=== PATIENT | female | born 1980 ===

== ENCOUNTER → 2019-01-30 10:40 | Outpatient (CLI) | payer OTHER, MEDICAID, SELFPAY ==
--- NOTE | 2019-01-30 10:43 | DI.US.S_ITS ---
PROCEDURE: US PELVIC COMPLETE INDICATIONS: Weight gain, menorrhagia TECHNIQUE: Real-time scanning was performed of the pelvic organs, with image documentation. Additional endovaginal scanning was necessary due to incomplete visualization of the adnexal and endometrial structures by transabdominal scanning. COMPARISON: None. FINDINGS: Transabdominal scanning: Limited scanning through the kidneys demonstrates mild right pelviectasis, which is seen both before and after voiding. The left kidney demonstrates an unremarkable appearance. No pathologic free abdominal or pelvic fluid. Endovaginal scanning: Uterus: Uterus is normal in size at 11.1 x 4.4 x 6.1 cm. The endometrium measures 11 mm in combined thickness. An IUD is seen again seen along the endometrial canal, just to the right of the midline. Ovaries: The right ovary measures 3.8 x 2.3 x 2.5 cm and demonstrates an unremarkable sonographic appearance. The left ovary measures 5.1 x 2 x 2.6 cm and demonstrates a vascular isoechoic focus at its inferior pole measuring up to 2.1 cm. No adnexal masses are detected. IMPRESSION: There is a 2.1 cm vascular isoechoic lesion involving the left ovary, which may be related to a resolving hemorrhagic cyst. At clinical discretion, a followup pelvic ultrasound is suggested in 6 weeks to assure resolution/ improvement. An IUD is seen, which is located along the endometrial canal, just to the right of the midline. Mild right kidney pelviectasis, which persists postvoid. Dictated by: Watson Wu M.D. on 01/30/2019 at 11:50 Approved by: Watson Wu M.D. on 01/30/2019 at 11:53
== END ==
PROVIDERS: PCP Student in an Organized Health Care Education/Training Program; Visit Provider Student in an Organized Health Care Education/Training Program
DX: N92.0 Excessive and frequent menstruation with regular cycle (principal); R10.2 Pelvic and perineal pain; R63.5 Abnormal weight gain; N28.9 Disorder of kidney and ureter, unspecified; Z97.5 Presence of (intrauterine) contraceptive device
CPT/HCPCS: 76856

== ENCOUNTER 2019-05-03 08:37 | Emergency (ER) | payer OTHER, MEDICAID, SELFPAY ==
[2019-05-03 08:57] VITALS: BP 183/113; PULSE 89; RESP 20; TEMP 36.5; O2SAT 98
--- NOTE | 2019-05-03 09:05 | ED.EAR ---
HPI - Ear Problem General Chief complaint: Ear Stated complaint: Thinks Ear infection LT is hurting Time Seen by Provider: 05/03/19 09:05 Source: patient Mode of arrival: ambulatory Limitations: no limitations History of Present Illness HPI Narrative: Patient is a 39-year-old female who presents with left ear pain. She says been off and on for past few months however last night she thought it got much worse. She now has some throat pain as well. No fevers no cough. She has been taking ilqi-qcx-xhfydkw seasonal allergy medicines it has not been helping. MD Complaint: ear pain Location: left ear Duration: intermittent Severity: mild Relieving factors: nothing Exacerbating factors: nothing Discharge from ear: no Related Data Previous Rx's Medication Instructions Recorded ketoconazole 2 % shampoo 1 applictn TOP 2XW 14 Days #120 ml 03/25/19 Allergies Allergy/AdvReac Type Severity Reaction Status Date / Time naproxen [From Aleve] Allergy Severe face Verified 04/25/19 14:00 swelling codeine AdvReac Agitated Verified 05/03/19 09:00 Review of Systems Review of Systems ROS Unobtainable: All systems reviewed & are unremarkable except as noted in HPI and below Constitutional Denies chills, Denies fever(s), Denies lethargy and Denies weakness Eyes Denies change in vision, Denies eye discharge, Denies irritation and Denies loss of vision ENT Ears, Nose, Mouth, and Throat: Reports as per HPI Cardiovascular Denies chest pain, Denies irregular heart rhythm, Denies lightheadedness, Denies palpitations, Denies dyspnea, Denies dyspnea on exertion and Denies orthopnea Respiratory Denies cough, Denies dyspnea, Denies dyspnea on exertion and Denies wheezing Gastrointestinal Gastrointestinal: Denies abdominal pain, Denies change in bowel habits, Denies diarrhea, Denies nausea and Denies vomiting Genitourinary Denies hematuria, Denies flank pain, Denies urinary incontinence and Denies urinary urgency Musculoskeletal Denies back pain, Denies muscle weakness, Denies numbness and Denies tingling Integumentary/Breasts Denies pruritus, Denies erythema, Denies rash and Denies wounds Neurologic Denies loss of vision, Denies numbness, Denies tingling and Denies weakness Endocrine Denies palpitations Allergic/Immunologic Denies wheezing PFSH Medical History Anxiety (Chronic) Back problem (Chronic) Fibromyalgia (Chronic ~2009) Lupus (systemic lupus erythematosus) (Chronic) Post traumatic stress disorder (PTSD) (Chronic) Kidney stones (Resolved ~2010) Surgical History Anesthesia (Resolved) History of lithotripsy (Resolved ~2009) Previous section (Resolved ~11/15/00) Family History Mother Lupus Fibromyalgia Social History Smoking Status: Current every day smoker Family History Mother Lupus Fibromyalgia Social History Smoking Status: Current every day smoker Exam Initial Vital Signs Initial Vital Signs: Vital Signs Temperature 97.7 F 05/03/19 08:57 Pulse Rate 89 05/03/19 08:57 Respiratory Rate 20 05/03/19 08:57 Blood Pressure 183/113 H 05/03/19 08:57 Pulse Oximetry 98 05/03/19 08:57 GENERAL: Well-appearing, well-nourished and in no acute distress. HEENT: Head atraumatic,EOMI, pupils reactive, face symmetric, moist mucous membranes EARS: Tympanic membranes visualized, no erythema or bulging, no hemotympanum PHARYNX: No erythema, no tonsillar exudate, no cervical lymphadenopathy CARDIOVASCULAR: Peripheral pulses intact RESPIRATORY: No respiratory distress speaking in full sentences EXTREMITIES: Normal range of motion, no clubbing or edema. Neurovascularly intact NEUROLOGICAL: Alert and oriented x4.Normal gait and speech. Cranial nerves II through XII grossly intact. SKIN: Warm, dry, no laceration, no petechiae, no rashes or lesions. Course Vital Signs - 8 hr 05/03/19 08:57 Temperature 97.7 F Pulse Rate 89 Respiratory Rate 20 Blood Pressure 183/113 H Pulse Oximetry 98 Discharge Plan Departure Patient Disposition: Home Clinical Impression: Acute ear pain Qualifiers: Laterality: left Qualified Code(s): H92.02 - Otalgia, left ear Discharge Date/Time: 05/03/19 09:18 Interventions: ED Discharge Assessment Last Done: 05/03/19 09:17 Instructions: DI for Ear Pain-Adult Activity Restrictions/Additional Instructions: *You have been diagnosed with left ear pain *What to do: At this time no indication for antibiotics other does not appear to be infection. *Continue to take medications as directed *Follow up with your primary care provider in 2-3 days *Return to ER if you should have fever, worsening pain decreased hearing or any new, worsening or concerning symptoms Prescriptions: No Action ketoconazole 2 % shampoo 1 applictn TOP 2XW 14 Days Qty: 120 RF: 2 Referrals: Lukasz Garrett MD [Primary Care Provider] -
== END 2019-05-03 09:18 | disposition home or self-care (01) ==
LOC: ED 09:19
PROVIDERS: Emergency Provider Emergency Medicine; PCP Student in an Organized Health Care Education/Training Program
DX: H92.02 Otalgia, left ear (principal)
CPT/HCPCS: 99282

== ENCOUNTER → 2019-07-09 06:36 | Outpatient (CLI) | payer OTHER, MEDICAID, SELFPAY ==
--- NOTE | 2019-07-09 06:37 | DI.MRI.S_ITS ---
PROCEDURE: MR CERVICAL SPINE WO CON INDICATIONS: Neck pain, R arm parasthesia TECHNIQUE: Noncontrast sagittal T1 spin echo and T2 fast spin echo, sagittal STIR, foraminal oblique sagittal T2 fast spin echo, and axial gradient echo or T2 fast spin echo through the cervical spine. COMPARISON: None. FINDINGS: Image quality: Excellent. Alignment and Curvature: There is normal bony alignment. There is straightening of normal cervical spine curvature. Bone Marrow: Marrow demonstrates normal overall signal. Spinal Cord: Visualized spinal cord has normal size and signal. No cerebellar tonsillar herniation. Paraspinous Soft Tissues: No paravertebral masses. Prevertebral soft tissues are normal in thickness. C2-C3: Normal appearance. C3-C4: Loss of disc signal. Mild, diffuse disc bulge. Mild narrowing of the central canal. Moderate right and mild left neural foraminal narrowing. No neural compression. C4-C5: Loss of disc signal. Mild, diffuse disc bulge. Mild narrowing of the central canal. Mild bilateral neural foraminal narrowing. No neural compression. C5-C6: Loss of disc signal. Moderate, diffuse disc bulge. Isbfvbdj-pu-qsojcm narrowing of the central canal with slight flattening of the anterior margin of the cervical spinal cord. Mild right and moderate left uncovertebral joint hypertrophy. Moderate right and severe left neural foraminal narrowing with compression of the exiting left C6 nerve root.. C6-C7: Loss of disc signal. Moderate, diffuse disc bulge. Moderate narrowing of the central canal. Mild right and moderate left neural foraminal narrowing. No neural compression. C7-T1: Normal appearance. IMPRESSION: 1. Multilevel degenerative disease. 2. Mild bilateral C5-C6 uncovertebral joint hypertrophy. 3. Moderate to severe C5-C6 central canal narrowing. Moderate C6-C7 central canal narrowing. Mild C3-C4 and C4-C5 central canal narrowing. 4. Moderate right and severe left C5-C6 neural foraminal narrowing. Mild right and moderate left C6-C7 neural foraminal narrowing. Moderate right and mild left C3-C4 neural foraminal narrowing. Mild bilateral C4-C5 neural foraminal narrowing. 5. Compression of the exiting left C6 nerve root secondary to neural foraminal narrowing. Please correlate with clinical data. Dictated by: Lelo Malloy MD, PhD on 07/09/2019 at 14:53 Approved by: Lelo Malloy MD, PhD on 07/09/2019 at 15:06
== END ==
PROVIDERS: PCP Student in an Organized Health Care Education/Training Program; Visit Provider Student in an Organized Health Care Education/Training Program
DX: M50.31 Other cervical disc degeneration, high cervical region (principal); R20.2 Paresthesia of skin; M48.02 Spinal stenosis, cervical region; M25.511 Pain in right shoulder; M79.7 Fibromyalgia
CPT/HCPCS: 72141

== ENCOUNTER 2019-10-27 12:36 | Day surgery (SDC) | payer OTHER, MEDICAID, SELFPAY ==
[2019-10-17 12:58] VITALS: BMI 35.5
[2019-10-27] VITALS (15 sets, daily range): BP systolic 127–163; BP diastolic 76–104; PULSE 72–101; RESP 10–20; TEMP 36.3–37.2; O2SAT 16–99; BMI 35.2
--- NOTE | 2019-10-27 | PATH_ITS ---
[facility] Accession Number: [id number] . 01 Material submitted: . uterus - UTERUS, BILATERAL FALLOPIAN TUBES . 02 Diagnosis: Uterus and Bilateral Fallopian Tubes, Hysterectomy and Bilateral Salpingectomy (Morcellated Specimen Weight 92 grams): Portions of interval phase endometrium; negative for glandular hyperplasia, cytologic atypia or malignancy. Myometrium with a leiomyoma (1.7 cm in greatest dimension); negative for cytologic atypia or malignancy. Uterine serosa with focal involvement by endosalpingiosis. Fallopian tube #1 involved by endosalpingiosis; negative for atypia or malignancy. Fallopian tube #2 with no significant histomorphologic abnormality; negative for atypia or malignancy. [facility] 10/31/2019 1114 Local . 02 Electronically signed: . Ashwini Johnson MD, Pathologist NPI- [id number] . 01 Gross description: . Received in formalin, labeled uterus, jade tubes, is a morcellated uterus (92 grams, 12.2 x 6.8 x 4.5 cm in aggregate) and two fimbriated fallopian tubes (tube #1: length-2.5 cm, diameter-0.4 cm; tube #2: length-3.3 cm, diameter-0.5 cm). The ovaries and cervix are absent. The specimen cannot be oriented and the endometrium and myometrium cannot be grossly measured. The parenchyma is borja and contains a solid firm white whorled homogeneous well-circumscribed nodule (1.7 x 1.2 x 0.8 cm). The serosa is borja-white smooth and shiny. The fallopian tubes have mcnamara-borja smooth shiny serosa and borja unremarkable lumens. Section code: (A1-A4) parenchyma, sales representative publications; (A5) fallopian tube #1, sales representative publications serial sections; (A6) fimbria #1, bivalved, entirely submitted; (A7) fallopian tube #2, sales representative publications serial sections; (A8) fimbria #2, bivalved, entirely submitted. ([id number]) /MRV 10/30/2019 1455 Local . 02 Pathologist provided ICD-10: N92.0, Z84.2 . 02 CPT . 840909 Performed at: 01 [facility] [address] [id number] MD Enrico Alas MD Phone: [phone] Performed at: 02 [facility] [address] [place], [place] [id number] MD Nataly Regalado MD Phone: [phone]
[2019-10-27] MEDS: LACTATED RINGERS 1,000 ML 100 ML IV ×2 (13:15→18:17)
--- NOTE | 2019-10-27 14:04 | PM.PREOP ---
Pre-operative Note Interval Note History & Physical reviewed/Exam performed by Physician: Yes Changes to H&P: No
[2019-10-27] MEDS: APREPITANT 40 MG CAPSULE PO (15:16)
[2019-10-27] MEDS: CEFAZOLIN 2 GM/100 ML FROZ.PIGGY IV (15:25)
--- NOTE | 2019-10-27 15:53 | SUR.OPER ---
Lithotomy on padded OR bed. [place] Pad Positioner under torso. Head on pillow, arms padded and tucked at sides. Legs secured in padded yellow fins stirrups.
[2019-10-27] MEDS: ROPIVACAINE 0.2% PF 2 MG/ML 10ML AMP 10 ML INJ (15:59)
[2019-10-27] MEDS: BUPIVACAINE 0.5% W/ EPI (PF) 30 ML VIAL INJ (15:59)
--- NOTE | 2019-10-27 16:45 | PM.OP.1 ---
Operative Date/Time/Diagnoses Date of procedure: 10/27/19 Time of procedure: 16:45 Pre-op diagnosis: Menorrhagia, dysmenorrhea Post-op diagnosis: same Procedure & Clinicians Procedure: Laparoscopic supracervical hysterectomy with bilateral salpingectomy Same procedure as scheduled: Yes Indications: Menorrhagia and dysmenorrhea Surgeon: Concepcion Campo Injection Molding Process Technician: Maura Lucia Click Yes if Unassisted: No Anesthesia Type: General Operative Notes Findings: Slightly globular, boggy uterus. Normal ovaries bilaterally. Status post tubal ligation. No endometriosis. No internal hernias. No scar tissue. Closure Type: primary Specimen(s): other (Uterus above the level of the bladder and the fallopian tubes) Estimated Blood Loss (mL): 20 Blood products transfused: none Procedure in detail: Patient is brought to the operating room where she underwent general anesthesia and [facility]. She was prepped and draped in the usual sterile fashion. A check list was reviewed with the staff in the room prior to beginning of the case. Patient had pulsatile stockings in place and functional. 2 g of Ancef were in prior to beginning of the case.. A Duval catheter was placed. A bivalved speculum was placed in the vagina. The Mirena IUD was removed without difficulty. A single-tooth tenaculum was placed on the anterior lip of the cervix and the cervix dilated to a #6 Hegar dilator. The uterine manipulator was placed through the cervix into the uterus with the balloon inflated with 3 mL of air. The area of the umbilical incision and the 5 mm right and left lower quadrant incisions were injected with Marcaine. An incision was made with scalpel. The verries needle was placed into the abdomen and confirmed in the appropriate place with withdrawal on a syringe and then free flow of fluid down through the needle. The abdomen was insufflated with CO2. The needle was removed and a 5 mm trocar placed without difficulty. There did not appear to be any damage is placement of the trocar. The right and left lower quadrant incisions were made with the scalpel and the trochars placed without damage to internal structures. The PK forceps were used to cauterize sequential bites were taken along the mesosalpinx followed by the round ligaments on both sides. Sequential bites were taken down the broad ligaments. The uterine arteries were cauterized. An incision was made above the level bladder pushing the bladder away from the cervix. The STONEY loop was placed around the uterus and the uterus was amputated above the level of the bladder. Bleeding was controlled with the PK forceps. The PK forceps were used to cauterize in the endocervical canal. A supracervical incision was made and an 11 mm port placed. A 15 mm Endo Catch bag was placed in the abdomen. The uterus was placed in the bag and brought up through the suprapubic port site. The Edinson O was placed. The uterus was hand morselized. The abdomen was reinsufflated and adequate hemostasis was noted. The trochars were removed and the CO2 allowed escape from the abdomen. The fascia layer of the suprapubic site was repaired with 0 Polysorb suture. Skin was closed with 4-0 Monocryl suture at the suprapubic site and the other 3 sites. The patient went to recovery room in good condition. Counts of instruments and sponges were correct. Complications: none Post-operative Condition: stable Disposition: observation Plan for aftercare: Discharge patient when she is ambulatory and tolerating oral medication
[2019-10-27] MEDS: HYDROMORPHONE 2 MG INJ IV (16:48)
[2019-10-27] MEDS: ONDANSETRON 4 MG/2 ML INJ IV ×2 (16:52→18:16)
[2019-10-27] MEDS: METOCLOPRAMIDE 10 MG/2 ML INJ IV (17:14)
--- NOTE | 2019-10-27 17:26 | SUR.PHASEI ---
Patient to room 204 on inpatient hospital bed with all belongings returned. Patient transferred in stable condition. All belongings returned to patient.
[2019-10-27] MEDS: HYDROCODONE/ACET 5/325 TABLET 2 TAB PO ×2 (18:16→22:19)
[2019-10-27] MEDS: INFLUENZA VACCINE 0.5 ML SYRINGE IM (21:04)
[2019-10-28] MEDS: HYDROCODONE/ACET 5/325 TABLET 2 TAB PO ×2 (01:59→07:23)
[2019-10-28] MEDS: LACTATED RINGERS 1,000 ML 100 ML IV (02:01)
--- NOTE | 2019-10-28 03:41 | PC.NURSE ---
Patient VSS, Lap Dressing's are intact w/ minimal drainage, patient's vaginal discharge scant, pink tinged. Patient does complain of abdominal pain /10 that has relief w/ [place] 5/325mg Q4. Patient has been ambulating to bathroom w/ minimal assistance. Patient has SCD's applied, bed is low and locked and call light is within reach.
[2019-10-28 06:08] VITALS: BP 125/78; PULSE 66; RESP 16; TEMP 36.2; O2SAT 97
[2019-10-28] MEDS: IBUPROFEN 600 MG TABLET PO (07:24)
[2019-10-28 08:00] VITALS: BP 131/73; PULSE 70; RESP 18; TEMP 36.9; O2SAT 96
--- NOTE | 2019-10-28 08:39 | CM.DANOTE ---
DCP: Case received, EMR reviewed and met with patient. Introduced self and role. Was able to meet with patient, , Ignacio, at bedside. Obtained baseline history and activity information from patient. DCP assessment completed with information currently available. Patient is a 39 year old female who admitted yesterday morning to the care of the surgical/OB team. PCP: Dr. Garrett. Payer: confirmed: [employer]. Patient came to the hospital for a surgical procedure. She had laparoscopic suprecervical hysterectomy and bilateral salpingectomy secondary to menorrhagia/dysmenorrhea. Met briefly with patient, alert and oriented. at bedside. Patient is independent at home with no needs. Confirmed with her that her primary MD is Dr. Garrett. P: DCP to continue to follow. She should be able to go home when medically stable. Tammy Garcia RN/Slitting Machine Feeder
[2019-10-28 09:00] VITALS: O2SAT 96
--- NOTE | 2019-10-28 09:00 | PM.DS.1 ---
History of Present Illness History of Present Illness Date Patient Seen: 10/28/19 Time Patient Seen: 09:00 Chief complaint: [id number] Narrative: Patient is doing well post laparoscopic supracervical hysterectomy Discharge Providers Provider Discharge Date: 10/28/19 Primary care physician: Lukasz Garrett MD Discharge provider: Concepcion Campo MD Summary Hospital Course Discharge Diagnosis: Dysmenorrhea and menorrhagia status post laparoscopic supracervical hysterectomy Hospital Course: Patient underwent a laparoscopic supracervical hysterectomy with removal of bilateral fallopian tubes on 10/27/2019. She did well postoperatively and was discharged home Status at Discharge Cognitive/behavioral status at discharge: oriented Functional status at discharge: independent ambulation Overall status at discharge: patient is progressing back to baseline Time Spent with Patient Time spent: Less than 30 minutes Exam Vital Signs (past 8 hours): - 10/28/19 06:08 10/28/19 08:00 Temperature 97.2 F L 98.4 F Pulse Rate 66 70 Respiratory Rate 16 18 Blood Pressure 125/78 131/73 Pulse Oximetry 97 96 Oxygen Delivery Method Room Air Oxygen Flow Rate 0 Narrative Exam Narrative: Abdomen is soft, nontender with minimal distention. Dressings are clean and dry. Extremities without edema and nontender. Discharge Plan Discharge Plan Patient Disposition: Home Discharge Med Rec/Prescriptions Prescriptions: Continued hydrocodone-acetaminophen 5-325 mg tablet 2 tab PO Q4-6H PRN (Reason: pain) Qty: 30 RF: 0 ibuprofen 600 mg tablet 600 mg PO Q6H PRN (Reason: Pain) RF: 0 Follow up/Referrals: Lukasz Garrett MD [Primary Care Provider] - Concepcion Campo MD [Physician] - 1 Week Discharge Orders: Discharge (Order); Ordered 10/28/19 Ordered By: Concepcion Campo Provider Discharge Instructions Diet: Regular Activity: no restrictions except nothing in vagina for 1 week Skin/Wound/Dressing Care Report to your healthcare provider any signs of infection, such as:: chills, fever, increased pain and unusual redness Dressing: remove bandaids tonight . Leave steristrips on for 1 week can get wet just pat dry Visit Report/Discharge Packet Instructions: DI for Hysterectomy, How to Prevent Falls, DI for Postoperative Pain, DI for Prescription Opioid Use Visit Report Forms: Stroke Signs & Symptoms Discharge Data Primary Care Provider: Lukasz Garrett Attending Provider: Concepcion Campo
--- NOTE | 2019-10-28 09:49 | PC.NURSE ---
Day Shift- pt rec'd PRN Scotts and PRN Ibuprofen at 0725, pain 8-9/10 aching to abd. Upon re-assessment pain decreased to 5/10, tolerable. Talked about pain management at home, staggering PRN medications, decreasing need for PRn Scotts, cutting pill in half if required. Avoiding constipation, pt has senna at home. Abd lap sites X4 covered with bandaids, umbilicus dressing small amount of dry bloody drainage. Pt ambulated in halls with steady gait with her . States is ready to go home. Pt voiding qs. Discharge summary packet reviewed with pt around 0930, no voiced concerns at this time. Aware of follow up appointment with Dr. Campo on 11/05 at 12:15. Pt has all belongings. Dr. Campo and pt both stated, pt has PRN Scotts prescription at home already. No new prescriptions. Pt left unit at 0945 via wheelchair in no distress with this RN escort. Pt's present to drive her home to [place].
== END 2019-10-28 09:45 | disposition home or self-care (01) ==
LOC: OR 12:37 → AC 17:50
PROVIDERS: PCP Student in an Organized Health Care Education/Training Program; Visit Provider Specialist
PROC: 0UT94ZL Resection of Uterus, Supracervical, Percutaneous Endoscopic Approach (ICD-10-PCS; CPT 58542; principal; 2019-10-27 13:45)
DX: D25.9 Leiomyoma of uterus, unspecified (principal); N92.0 Excessive and frequent menstruation with regular cycle; N94.6 Dysmenorrhea, unspecified; Z23 Encounter for immunization; M79.7 Fibromyalgia; E66.9 Obesity, unspecified; F17.210 Nicotine dependence, cigarettes, uncomplicated; F41.9 Anxiety disorder, unspecified; L93.0 Discoid lupus erythematosus; N94.89 Other specified conditions associated with female genital organs and menstrual cycle
CPT/HCPCS: 58542; 90471; 90656; J0690; J1100; J1170; J2250; J2405; J2704; J2765; J2795; J3010; J8501; Q2038

== ENCOUNTER → 2019-11-05 14:14 | Outpatient (CLI) | payer OTHER, MEDICAID, SELFPAY ==
[2019-10-27 18:31] VITALS: BMI 35.2
== END ==
PROVIDERS: PCP Student in an Organized Health Care Education/Training Program; Visit Provider Specialist
DX: R30.0 Dysuria (principal)
CPT/HCPCS: 87086

== ENCOUNTER 2019-12-06 00:21 | Emergency (ER) | payer OTHER, MEDICAID, SELFPAY ==
[2019-10-27 18:31] VITALS: BMI 35.2
[2019-12-06 00:31] VITALS: BP 142/96; PULSE 74; RESP 15; TEMP 36.6; O2SAT 97; BMI 36.0
--- NOTE | 2019-12-06 00:38 | DI.RAD.S_ITS ---
PROCEDURE: XR CHEST 1V INDICATIONS: chest pain TECHNIQUE: One view of the chest was acquired. COMPARISON: None. FINDINGS: Surgical changes and devices: None. Lungs and pleura: Lungs are clear. No pleural effusions or pneumothorax. Mediastinum: Mediastinal contours appear normal. Heart size is normal. Bones and chest wall: No suspicious bony lesions. Overlying soft tissues appear unremarkable. IMPRESSION: No acute cardiopulmonary process is evident. Dictated by: Willian Patel M.D. on 12/06/2019 at 6:53 Approved by: Willian Patel M.D. on 12/06/2019 at 6:54
[2019-12-06 01:05] LABS: Add Manual Diff / Slide Review NO; Basophils Absolute Auto 100 /uL (0-100); Basophils Percent Auto 0.6 % (0-2); Eosinophils Absolute Auto 100 /uL (0-450); Eosinophils Percent Auto 1.4 % (2-4); Hemoglobin 14.2 g/dL (12.0-16.0); Lymphocytes Absolute Auto 2100 /uL (1100-4500); Lymphocytes Percent Auto 20.4 % (25-40); Mean Corpuscular HGB Conc 35.5 % (30-36); Mean Corpuscular Hemoglobin 32.4 PG (26-34); Mean Corpuscular Volume 91.3 fL (80-100); Monocytes Absolute Auto 900 /uL (0-900); Monocytes Percent Auto 8.5 % (3-14); Neutrophils Absolute Auto 7200 /uL (1500-7000); Neutrophils Percent Auto 69.1 % (50-75); Platelet Count 274 X10^3/uL (150-400); Red Blood Cell Count 4.38 X10^6/uL (4.0-5.2); Red Cell Distribution Width 12.4 % (11.6-14.8); White Blood Cell Count 10.5 X10^3/uL (4.5-11.0)
[2019-12-06 01:09] LABS: Prothrombin Time 11.8 SECONDS (10.1-12.7)
[2019-12-06 01:12] LABS: PTT Partial Thromboplastin Tim 34 SECONDS (26.4-36.2)
[2019-12-06 01:15] LABS: Alanine Aminotransferase 26 IU/L (<35); Albumin 4.5 g/dL (3.5-5.0); Albumin Globulin Ratio 1.3 (1.0-2.8); Alkaline Phosphatase 86 U/L (38-126); Aspartate Aminotransferase 27 IU/L (14-36); BUN Creatinine Ratio 22.9 (6-22); Bilirubin Total 0.4 mg/dL (0.2-1.3); Blood Urea Nitrogen 16 mg/dL (7-17); Calcium 9.5 mg/dL (8.4-10.2); Carbon Dioxide 20 mmol/L (22-32); Chloride 106 mmol/L (98-107); Creatine Kinase 85 U/L (30-135); Estimated Glomerular Filt Rate > 60.0 mL/min (>60); Globulin 3.5 g/dL (1.7-4.1); Glucose 100 mg/dL (70-100); HEMOLYSIS < 15 (0-50); Lipase 232 U/L (23-300); Potassium 3.7 mmol/L (3.4-5.1); Sodium 139 mmol/L (137-145)
[2019-12-06 01:27] LABS: Troponin I < 0.012 ng/mL (0.01-0.034)
--- NOTE | 2019-12-06 02:13 | ED_ITS ---
HPI - Chest Pain General Chief Complaint: Chest Pain Stated Complaint: pain in right arm/chest heavy with pain Time Seen by Provider: 12/06/19 02:10 Source: patient Mode of arrival: Family Vehicle Limitations: no limitations History of Present Illness HPI narrative: 39-year-old female former smoker presents with her in the chief complaint of 3 days episodic chest pain and right upper extremity pain. She denies any provocation or palliation of her chest pain or associated symptoms such as dizziness, weakness, lightheadedness nor nausea, vomiting or diaphoresis. She states her right arm seems to hurt worse with range of motion and she denies any type of injury. She denies any history of the same period 1 month ago she had hysterectomy. She denies any recent travel, history of clot or cancer. MD complaint: chest pain Onset (ago): day(s) Duration: intermittent Pain location: substernal Severity: mild Quality: sharp Pain radiation: none Relieving factors: nothing Exacerbating factors: nothing Treatments prior to arrival chest pain: none Related Data On Oral Contraceptives: No Home Medications Medication Instructions Recorded Confirmed ibuprofen 600 mg tablet 600 mg PO Q6H PRN 08/06/19 11/17/19 Allergies Allergy/AdvReac Type Severity Reaction Status Date / Time naproxen [From Aleve] Allergy Severe face Verified 11/17/19 10:43 swelling codeine AdvReac Mild Agitated Verified 11/17/19 10:43 Review of Systems Constitutional Constitutional: Denies chills, Denies fatigue, Denies fever(s), Denies frequent falls, Denies lethargy and Denies weakness Eyes Eyes: Denies change in vision, Denies eye discharge, Denies irritation and Denies loss of vision ENT Ears, Nose, Mouth, and Throat: Denies change in voice, Denies dizziness, Denies neck pain, Denies sore throat and Denies throat swelling Cardiovascular Cardiovascular: Denies chest pain, Denies irregular heart rhythm, Denies lightheadedness, Denies palpitations, Denies dyspnea, Denies dyspnea on exertion and Denies orthopnea Respiratory Respiratory: Denies cough, Denies dyspnea, Denies dyspnea on exertion and Denies wheezing Gastrointestinal Gastrointestinal: Denies abdominal pain, Denies change in bowel habits, Denies diarrhea, Denies nausea and Denies vomiting Genitourinary Genitourinary: Denies hematuria, Denies flank pain, Denies urinary incontinence and Denies urinary urgency Musculoskeletal Musculoskeletal: Denies back pain, Denies muscle weakness, Denies neck pain, Denies numbness and Denies tingling Integumentary/Breasts Skin/Breast: Denies pruritus, Denies erythema, Denies rash and Denies wounds Neurologic Neurologic: Denies behavioral changes, Denies confusion, Denies dizziness, Denies frequent falls, Denies loss of vision, Denies numbness, Denies tingling and Denies weakness Psychiatric Psychiatric: Denies anxiety, Denies behavioral changes, Denies confusion, Denies depression, Denies homicidal ideation and Denies suicidal ideation Endocrine Endocrine: Denies fatigue, Denies flushing and Denies palpitations Hematologic/Lymphatic Hematologic/Lymphatic: Denies easy bruising Allergic/Immunologic Allergic/Immunologic: Denies urticaria, Denies throat swelling and Denies wheezing Patient History Medical History (Updated 12/06/19 @ 02:50 by Feng Moraes DO) Anxiety (Chronic) Back problem (Chronic) Cervical stenosis of spinal canal (Acute) Fibromyalgia (Chronic ~2009) Herniated nucleus pulposus with myelopathy, cervical (Acute) Kidney stones (Resolved ~2010) Lupus (systemic lupus erythematosus) (Chronic) Post traumatic stress disorder (PTSD) (Chronic) Surgical History (Updated 11/05/19 @ 14:08 by Concepcion Campo MD) Anesthesia (Resolved) History of lithotripsy (Resolved ~2009) Previous section (Resolved ~11/15/00) S/P laparoscopic supracervical hysterectomy (Acute) Social History household members: spouse and children Smoking Status: Current every day smoker alcohol intake: current Smoking Status: Current every day smoker tobacco type: vaping alcohol intake frequency: a few times a week Alcohol type: wine Substance Use Type: marijuana Exam Narrative Exam Narrative: GENERAL: [39] year old patient appears stated age. Well- nourished, well-developed patient, in mild distress. HEAD: Atraumatic. Normocephalic. EYES: Pupils equal round and reactive. Extraocular motions intact. No scleral icterus. No injection or drainage. ENT: Nose without bleeding, purulent drainage. Throat without erythema, tonsillar hypertrophy or exudate. Airway patent. NECK: Trachea midline. Non tender CARDIOVASCULAR: Regular rate and rhythm without murmurs, gallops, or rubs. RESPIRATORY: Clear to auscultation. Breath sounds equal bilaterally. No wheezes, rales, or rhonchi. GASTROINTESTINAL: Abdomen soft, non-tender, nondistended. EXTREMITIES: No edema or joint tenderness. Patient does have some tenderness to palpation of her right upper extremity in the absence of swelling, redness, warmth or deformity. There is no obvious injury. Given recent IV, ultrasound ordered for the potential of DVT BACK: Nontender without deformity or crepitance. No flank tenderness. NEURO: AOx3. SKIN: No rash or erythema of visible areas Initial Vital Signs Initial Vital Signs: Vital Signs Temperature 97.8 F 12/06/19 00:31 Pulse Rate 74 12/06/19 00:31 Respiratory Rate 15 12/06/19 00:31 Blood Pressure 142/96 H 12/06/19 00:31 Pulse Oximetry 97 12/06/19 00:31 Course Orders Ordered: ED Orders 12/06/19 00:34 EKG-12 Lead Stat 12/06/19 00:38 XR chest 1V Stat 12/06/19 00:51 Complete Blood Count AUTO DIFF Stat Comprehensive Metabolic Panel Stat D Dimer Stat Lipase Stat Partial Thromboplastin Time Stat Prothrombin Time INR Stat Troponin & CK Cardiac Panel Stat 12/06/19 02:26 EKG-12 Lead Routine 12/06/19 02:54 US periph venous up extrem rt Stat Vital Signs Vital signs: Vital Signs - 8 hr 12/06/19 00:31 12/06/19 02:32 Temperature 97.8 F Pulse Rate 74 77 Respiratory Rate 15 20 Blood Pressure 142/96 H Blood Pressure [Left Arm] 157/83 H Pulse Oximetry 97 98 MDM - Chest Pain Lab Data Result diagrams: 12/06/19 00:51 12/06/19 00:51 Labs: Lab Results 12/06/19 12/06/19 12/06/19 Range/Units 00:51 00:51 00:51 WBC 10.5 (4.5-11.0) X10^3/uL RBC 4.38 (4.0-5.2) X10^6/uL Hgb 14.2 (12.0-16.0) g/dL Hct 40.0 (36-46) % MCV 91.3 (80-100) fL MCH 32.4 (26-34) PG MCHC 35.5 (30-36) % RDW 12.4 (11.6-14.8) % Plt Count 274 (150-400) X10^3/uL Neut % (Auto) 69.1 (50-75) % Lymph % (Auto) 20.4 L (25-40) % [place] % (Auto) 8.5 (3-14) % Eos % (Auto) 1.4 L (2-4) % Baso % (Auto) 0.6 (0-2) % Neut # (Auto) 7200 H (3694-5051) /uL Lymph # (Auto) 2100 (1599-4364) /uL [place] # (Auto) 900 (0-900) /uL Eos # (Auto) 100 (0-450) /uL Baso # (Auto) 100 (0-100) /uL PT 11.8 (10.1-12.7) SECONDS INR 1.0 (0.9-1.3) APTT 34 (26.4-36.2) SECONDS D-Dimer (<230) ng/mL Sodium 139 (137-145) mmol/L Potassium 3.7 (3.4-5.1) mmol/L Chloride 106 (98-107) mmol/L Carbon Dioxide 20 L (22-32) mmol/L BUN 16 (7-17) mg/dL Creatinine 0.70 (0.52-1.04) mg/dL Estimated GFR > 60.0 (>60) mL/min BUN/Creatinine Ratio 22.9 H (6-22) Glucose 100 (70-100) mg/dL Calcium 9.5 (8.4-10.2) mg/dL Total Bilirubin 0.4 (0.2-1.3) mg/dL AST 27 (14-36) IU/L ALT 26 (<35) IU/L Alkaline Phosphatase 86 (38-126) U/L Total Creatine Kinase 85 (30-135) U/L CK-MB (CK-2) TNP CK-MB (CK-2) Rel Index TNP Troponin I < 0.012 (0.01-0.034) ng/mL Total Protein 8.0 (6.3-8.2) g/dL Albumin 4.5 (3.5-5.0) g/dL Globulin 3.5 (1.7-4.1) g/dL Albumin/Globulin Ratio 1.3 (1.0-2.8) Lipase 232 (23-300) U/L 12/06/19 Range/Units 00:51 WBC (4.5-11.0) X10^3/uL RBC (4.0-5.2) X10^6/uL Hgb (12.0-16.0) g/dL Hct (36-46) % MCV (80-100) fL MCH (26-34) PG MCHC (30-36) % RDW (11.6-14.8) % Plt Count (150-400) X10^3/uL Neut % (Auto) (50-75) % Lymph % (Auto) (25-40) % [place] % (Auto) (3-14) % Eos % (Auto) (2-4) % Baso % (Auto) (0-2) % Neut # (Auto) (3665-3627) /uL Lymph # (Auto) (2010-9124) /uL [place] # (Auto) (0-900) /uL Eos # (Auto) (0-450) /uL Baso # (Auto) (0-100) /uL PT (10.1-12.7) SECONDS INR (0.9-1.3) APTT (26.4-36.2) SECONDS D-Dimer 257 H (<230) ng/mL Sodium (137-145) mmol/L Potassium (3.4-5.1) mmol/L Chloride (98-107) mmol/L Carbon Dioxide (22-32) mmol/L BUN (7-17) mg/dL Creatinine (0.52-1.04) mg/dL Estimated GFR (>60) mL/min BUN/Creatinine Ratio (6-22) Glucose (70-100) mg/dL Calcium (8.4-10.2) mg/dL Total Bilirubin (0.2-1.3) mg/dL AST (14-36) IU/L ALT (<35) IU/L Alkaline Phosphatase (38-126) U/L Total Creatine Kinase (30-135) U/L CK-MB (CK-2) CK-MB (CK-2) Rel Index Troponin I (0.01-0.034) ng/mL Total Protein (6.3-8.2) g/dL Albumin (3.5-5.0) g/dL Globulin (1.7-4.1) g/dL Albumin/Globulin Ratio (1.0-2.8) Lipase (23-300) U/L Imaging Data US - DVT: Radiologist's Impression: no DVT ECG Data Interpretation: Nonischemic MDM Narrative Medical decision making narrative: Multiple etiologies for patient's symptoms considered including: [Cardiac ischemia, thought less likely given lack of convincing history or physical, nonischemic EKG and negative troponin. Pulmonary embolism considered but lack of persistent symptoms, abnormal vitals, and very low D-dimer] Patient's symptoms improved or duration of stay with above-stated therapies. Findings and discharge diagnosis discussed with patient/family followed by verbalization of understanding Return precautions discussed with patient/family whom verbalize understanding. Discharge Plan Departure Patient Disposition: Home Clinical Impression: Atypical chest pain Instructions: DI for Atypical Chest Pain Activity Restrictions/Additional Instructions: *You have been diagnosed with [atypical chest pain, pulmonary embolism and heart attack considered but thought less likely given labs and EKGs] *What to do: *Take medications as directed *Follow up with your primary care provider in 2-3 days, call for an appointment. Let them know you were seen in the Emergency Department and that we ask that you be seen in follow up *Return to ER if you should have any new, worsening or concerning symptoms Prescriptions: No Action ibuprofen 600 mg tablet 600 mg PO Q6H PRN (Reason: Pain) RF: 0 Referrals: Lukasz Garrett MD [Primary Care Provider] -
[2019-12-06 02:32] VITALS: BP 157/83; PULSE 77; RESP 20; O2SAT 98
[2019-12-06 02:42] LABS: D Dimer 257 ng/mL (<230)
--- NOTE | 2019-12-06 02:54 | DI.US.S_ITS ---
PROCEDURE: US PERIPH VENOUS UP EXTREM RT INDICATIONS: PAIN, SWELLING, ELEVATED D DIMER, RECENT IV TECHNIQUE: Real-time imaging, as well as color and pulse Doppler interrogation, was performed of the right upper extremity deep veins from the inferior neck to the antecubital fossa. COMPARISON: None. FINDINGS: The internal jugular vein, visualized portions of the subclavian vein, axillary, and brachial veins are free of intraluminal thrombus. Where physically possible, the veins are normally compressible. Color and pulse Doppler demonstrate normal intraluminal flow, with expected phasicity and pulsatility. Additional scanning of the cephalic and basilic veins of the superficial system demonstrate normal compressibility, without thrombus. IMPRESSION: No evidence of right upper extremity deep vein thrombosis. Dictated by: Willian Patel M.D. on 12/06/2019 at 7:01 Approved by: Willian Patel M.D. on 12/06/2019 at 7:02
[2019-12-06 04:21] VITALS: BP 157/83; PULSE 66; RESP 16; O2SAT 97
== END 2019-12-06 04:23 | disposition home or self-care (01) ==
PROVIDERS: Emergency Medicine; Emergency Provider Emergency Medicine; PCP Student in an Organized Health Care Education/Training Program
DX: R07.89 Other chest pain (principal)
CPT/HCPCS: 36415; 71045; 80053; 82550; 83690; 84484; 85025; 85379; 85610; 85730; 93005; 93971; 99284; 99285

== ENCOUNTER → 2020-06-01 15:06 | Outpatient (CLI) | payer OTHER, MEDICAID, SELFPAY ==
[2019-10-27 18:31] VITALS: BMI 35.2
[2020-06-01 15:15] LABS: RBC Urine None Seen (0-5/HPF)
[2020-06-01 18:56] LABS: Appearance Urine UA CLEAR; Bilirubin Urine UA NEGATIVE (NEGATIVE); Color Urine UA YELLOW; Glucose Urine UA NEGATIVE (Negative); Ketones Urine UA NEGATIVE (NEGATIVE); Leukocyte Esterase Urine UA NEGATIVE (NEGATIVE); Nitrite Urine UA NEGATIVE (Negative); Occult Blood Urine UA NEGATIVE (Negative); Protein Urine UA NEGATIVE (Negative); Specific Gravity Urine UA 1.015 (1.000-1.035); Urobilinogen Urine UA 0.2 E.U./dL (0.2)
[2020-06-01 19:27] LABS: Bacteria Urine Many (>30); Squamous Epithelial Cell Urine 0-1 /HPF (0-5/HPF); WBC Urine 1-5/HPF (0-5/HPF)
[2020-06-01 19:28] LABS: Culture Indicated Urine Cult Not Indicated
== END ==
PROVIDERS: PCP Student in an Organized Health Care Education/Training Program; Referring Provider Student in an Organized Health Care Education/Training Program; Visit Provider Student in an Organized Health Care Education/Training Program
DX: R10.2 Pelvic and perineal pain (principal); R10.9 Unspecified abdominal pain
CPT/HCPCS: 81001

== ENCOUNTER → 2020-06-08 10:53 | Outpatient (CLI) | payer OTHER, MEDICAID, SELFPAY ==
[2019-10-27 18:31] VITALS: BMI 35.2
--- NOTE | 2020-06-08 10:55 | DI.US.S_ITS ---
PROCEDURE: US ABDOMEN COMPLETE INDICATIONS: PAIN TECHNIQUE: Real-time scanning was performed of the abdominal and retroperitoneal organs, with image documentation. COMPARISON: None. FINDINGS: Liver: Size appears prominent. Normal echogenicity. Gallbladder: Nondilated. No stones or sludge. Normal gallbladder wall thickness. No pericholecystic fluid. Negative sonographic Brunson's sign. Biliary ducts: Intrahepatic bile ducts are non-dilated. Extrahepatic bile duct caliber measures 4 mm. Normal is 6-7 mm or less in diameter, or 10 mm or less post-cholecystectomy. Pancreas: Visualized portions of the pancreas are sonographically normal. Spleen: Spleen is normal in size and homogeneous in echotexture. Kidneys: Kidneys are normal in size and echotexture. Right kidney measures 12.3 cm long; left kidney measures 11.8 cm long. No hydronephrosis or nephrolithiasis. No solid masses. Aorta: Visualized aorta is normal in caliber at less than 3 cm. Iliacs: Proximal common iliac arteries are normal in caliber at less than 2.5 cm. IVC: Intrahepatic inferior vena cava is patent. Miscellaneous: No free abdominal fluid. IMPRESSION: 1. No acute cholecystitis. No gallstones. 2. No hydronephrosis. Dictated by: Greg Zamora M.D. on 06/08/2020 at 14:22 Approved by: Greg Zamora M.D. on 06/08/2020 at 14:24
== END ==
PROVIDERS: PCP Student in an Organized Health Care Education/Training Program; Referring Provider Student in an Organized Health Care Education/Training Program; Visit Provider Student in an Organized Health Care Education/Training Program
DX: R10.9 Unspecified abdominal pain (principal); E66.9 Obesity, unspecified; K21.9 Gastro-esophageal reflux disease without esophagitis; M79.7 Fibromyalgia; Z68.36 Body mass index [BMI] 36.0-36.9, adult
CPT/HCPCS: 76700; 97802

== ENCOUNTER → 2020-06-08 11:16 | Outpatient (CLI) | payer OTHER, MEDICAID, SELFPAY ==
[2019-10-27 18:31] VITALS: BMI 35.2
--- NOTE | 2020-06-08 11:29 | DIET.PN ---
Dietary Progress Note Assessment: 40y F referred to RD for abnormal weight gain, weight management, and GERD at her wits end on what to eat or how to manage health conditions. Pt was weight stable and healthy until age 29 at which point she went from size 4-16 in less than a year, pt reports going through very stressful divorce at the time. Was dx c hypothyroid, put on meds, then 2y later it apparently resolved itself. Pt has not had thyroid f/u since. Pt dx c fibromyalgia 2y ago. Pt was taking ranitidine for GERD until no longer available for use, having difficulty finding med/protocol to manage heartburn. Pt describes as heartburn cascades like stomach is pushing things up and burning pain where cannot think or get through it Pt started Elimination Diet recommended by someone online c fibromyalgia. no dairy, no gluten, rice, potatoes, sweet potatoes, sensitive to all food additives quinoa is okay Currently having one meal per day in middle of her day and one small snack: L: salad c Super Greens, tomatoes, mushrooms, egg/tuna, ethiopian dressing (sometimes GF ranch) sn: very small portion meal or popcorn mostly very cold water and coffee to drink pt does not really sweat, experiencing a lot of swelling all over body and heat intolerance. Pt does belly dancing once per week but no other intentional physical activity. HT: 67 WT: 232# has lost 8# on elimination diet in 2w BMI: 36.4 Nutrition Diagnosis: poor nutritional quality of life r/t limited food options secondary to not knowing what to eat to manage obesity, GERD, fibromyalgia aeb pt eating one meal and one snack per day, pt high anxiety over food choices, uncontrolled GERD, obesity, fibromyalgia. Interventions: 1. Discussed Elimination Diet in context of GERD and Fibromyalgia. 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 Pt instructed to continue following the diet strictly for another two weeks at which point she needs to start reintroducing foods to test their effects on her body. Pt instructed to keep food journal and to introduce one new food every 2-3 days. Point is to learn which foods are acceptable to increase variety to least restrictive diet possible for ultimate health. 2. Discussed anti-inflammatory diet principles with goal of liberalizing diet to ultimately follow this pattern. Pt is using canola oil spray for some cooking, educated pt on Greenup 3 and Greenup 6 foods, to reduce 6 and increase 3 to balance inflammation and pain in body. Pt is tolerating spices, herbs, and chilis which are all anti-inflammatory. Pt stopped eating yogurt and is getting no probiotic. Discussed lacto-fermented vegetables, pt likes and tolerates sauerkraut and is very interested in making her own now. Provided pt with instructional handouts and meal plan. 3. Discussed role of physical activity in pain and weight management. Pt's very interested in them going [place] h[place] in [place]. Pt receptive to added encouragement. [facility] as she has hx of hypothyroid but is not being monitored. Pt will call for f/u appt c RD as needed.
== END ==
PROVIDERS: PCP Student in an Organized Health Care Education/Training Program; Referring Provider Student in an Organized Health Care Education/Training Program; Visit Provider Student in an Organized Health Care Education/Training Program
DX: K21.9 Gastro-esophageal reflux disease without esophagitis (principal); M79.7 Fibromyalgia; Z68.36 Body mass index [BMI] 36.0-36.9, adult; E66.9 Obesity, unspecified
CPT/HCPCS: 97802

== ENCOUNTER → 2020-08-26 14:40 | Outpatient (CLI) | payer OTHER, MEDICAID, SELFPAY ==
[2019-10-27 18:31] VITALS: BMI 35.2
[2020-08-26 16:13] LABS: TSH w/ Reflex to FT4 3.29 uIU/mL (0.47-4.68)
== END ==
PROVIDERS: PCP Student in an Organized Health Care Education/Training Program; Referring Provider Student in an Organized Health Care Education/Training Program; Visit Provider Student in an Organized Health Care Education/Training Program
DX: E66.9 Obesity, unspecified (principal)
CPT/HCPCS: 36415; 84443

== ENCOUNTER → 2021-02-04 10:07 | Outpatient (CLI) | payer OTHER, MEDICAID, SELFPAY ==
[2019-10-27 18:31] VITALS: BMI 35.2
[2021-02-04] MEDS: COVID-19 VACC, Ad26(JANSSEN)/PF 0.5 ML IM (10:23)
== END ==
PROVIDERS: PCP Student in an Organized Health Care Education/Training Program; Visit Provider Internal Medicine
DX: Z23 Encounter for immunization (principal)
CPT/HCPCS: 0031A; 91303

== ENCOUNTER → 2021-02-09 08:03 | Outpatient (CLI) | payer OTHER, MEDICAID, SELFPAY ==
[2019-10-27 18:31] VITALS: BMI 35.2
--- NOTE | 2021-02-09 09:57 | DI.CT.S_ITS ---
PROCEDURE: CT ABDOMEN PELVIS W CON INDICATIONS: RLQ abdominal pain for 5mo TECHNIQUE: After the administration of oral and intravenous contrast, 5 mm thick sections acquired from the diaphragms to the symphysis. 5 mm thick coronal and sagittal reformats were performed. For radiation dose reduction, the following was used: automated exposure control, adjustment of mA and/or kV according to patient size. COMPARISON: [facility], , PELVIC COMPLETE, 01/30/2019, 10:59. FINDINGS: Image quality: Excellent. ABDOMEN: Lung bases: Lung bases are clear. Heart size is normal. Solid organs: Liver is normal in size and enhancement. Gallbladder is unremarkable. Biliary system is non-dilated. Pancreas enhances normally. Rare tiny pancreatic calcifications are consistent with mild changes of chronic pancreatitis. Spleen is normal in size and enhancement. No adrenal nodules. Kidneys are normal in size and enhancement, without hydronephrosis. Peritoneum and bowel: Stomach, small bowel, and colon loops are normal in caliber and wall thickness. No free fluid or air. Normal appendix. Nodes and vessels: No retroperitoneal or mesenteric adenopathy. Aorta and inferior vena cava are normal in caliber. Miscellaneous: No ventral hernias. PELVIS: Genitourinary: Bladder wall thickness is normal. Miscellaneous: No inguinal hernias or adenopathy. Interval subtotal hysterectomy. Bones: No suspicious bony lesions. No vertebral body compression fractures. IMPRESSION: 1. No evidence of acute abdominal process. Normal appendix. 2. Moderate fecal debris. 3. Mild findings suggesting chronic pancreatitis. Dictated by: Guido Delacruz M.D. on 02/09/2021 at 10:58 Approved by: Guido Delacruz M.D. on 02/09/2021 at 11:02
== END ==
PROVIDERS: PCP Student in an Organized Health Care Education/Training Program; Referring Provider Student in an Organized Health Care Education/Training Program; Visit Provider Student in an Organized Health Care Education/Training Program
DX: R10.31 Right lower quadrant pain (principal); R10.2 Pelvic and perineal pain
CPT/HCPCS: 74177; Q9967

== ENCOUNTER → 2021-08-15 08:46 | Outpatient (CLI) | payer OTHER, MEDICAID, SELFPAY ==
[2019-10-27 18:31] VITALS: BMI 35.2
[2021-08-15 10:28] LABS: COVID19 -Nasal RAPID Negative (Negative)
== END ==
PROVIDERS: PCP Student in an Organized Health Care Education/Training Program; Visit Provider Physician Assistant
DX: Z20.822 Contact with and (suspected) exposure to COVID-19 (principal)
CPT/HCPCS: 87635

== ENCOUNTER 2021-08-16 22:49 | Emergency (ER) | payer OTHER, MEDICAID, SELFPAY ==
[2019-10-27 18:31] VITALS: BMI 35.2
[2021-08-16 22:57] VITALS: BP 126/81; PULSE 87; RESP 17; TEMP 36.8; O2SAT 98; BMI 32.7
--- NOTE | 2021-08-17 00:24 | ED.EAR ---
HPI - Ear Problem General Chief complaint: Ear Stated complaint: LEFT EAR PAIN COUGH Time Seen by Provider: 08/16/21 23:29 Source: patient Mode of arrival: Ambulatory Limitations: no limitations History of Present Illness HPI Narrative: 41-year-old woman with no significant medical history presents with increasing left ear pain developing right ear pain. She 1st noticed symptoms 48 hours ago and was seen at urgent care. She was diagnosed with otitis media and started on Cipro drops however she has found no improvement now notes that she is having pain around the tragus as well as mastoid tenderness. She is also now noting external canal tenderness on the right side. She has had low-grade fevers for the past 48 hours, mild nausea, no vomiting, abdominal pain, diarrhea, dysuria, cough, chest pain, palpitations. She has had headaches and is now noticing some jaw pain with chewing radiating up into the ears. She does not notice specific drainage from the ears and denies any diabetes. She has not been doing any recent swimming. Related Data Home Medications Medication Instructions Recorded Confirmed ibuprofen 600 mg tablet 600 mg PO Q6H PRN 08/06/19 08/03/21 Previous Rx's Medication Instructions Recorded propranolol 40 mg tablet 40 mg PO BID #180 tab 08/26/20 gabapentin 300 mg capsule 300 mg PO BEDTIME #30 cap 08/03/21 ciprofloxacin 0.3 %-dexamethasone 4 drp OTIC (EAR) BID 7 Days #7.5 ml 08/15/21 0.1 % ear drops,suspension (Ciprodex) ciprofloxacin HCl 750 mg tablet 750 mg PO BID #10 tab 08/17/21 oxycodone-acetaminophen 5 mg-300 1 tab PO Q6HR #8 tab 08/17/21 mg tablet Allergies Allergy/AdvReac Type Severity Reaction Status Date / Time naproxen [From Aleve] Allergy Severe face Verified 08/03/21 14:28 swelling codeine AdvReac Mild Agitated Verified 08/03/21 14:28 lisinopril AdvReac Mild cough Verified 08/03/21 14:28 Review of Systems Review of Systems Narrative: Remainder of review Patient History Medical History Anxiety Back problem Cervical stenosis of spinal canal Family history of endometriosis in first degree relative Fibromyalgia (~2009) Herniated nucleus pulposus with myelopathy, cervical Kidney stones (~2010) Lupus (systemic lupus erythematosus) Post traumatic stress disorder (PTSD) Tinea versicolor Surgical History Anesthesia History of lithotripsy (~2009) Previous section (~11/15/00) S/P laparoscopic supracervical hysterectomy Family History Mother Lupus Fibromyalgia Social History household members: spouse and children Smoking Status: Current some day smoker alcohol intake: current Smoking Status: Current some day smoker tobacco type: vaping alcohol intake frequency: a few times a week Alcohol type: wine Substance Use Type: marijuana Exam Narrative Exam Narrative: General: Alert appropriate in no acute distress HEENT: Left ear is tender with any manipulation with tenderness to the left mastoid process as well as tragus. The ear canal is swollen without significant discharge there is enough of a canal remaining that I can see to the tympanic membrane but can not evaluate any further. The helix is slightly erythematous and full tender to the touch. Right year is beginning to develop some tenderness to the internal portion of the helix and down the ear canal without mastoid tenderness. She does have tenderness on the left side when she opens her jaw. No dental abscesses and she does not have molars either upper or lower on the left side. Respiratory: Able to speak in full sentences, no obvious respiratory distress Skin: No obvious rashes, warm and dry Neurologic: Grossly intact no obvious asymmetries or abnormalities Psych: appropriate insight and affect, cooperative Initial Vital Signs Initial Vital Signs: Vital Signs Temperature 98.2 F 08/16/21 22:57 Pulse Rate 87 08/16/21 22:57 Respiratory Rate 17 08/16/21 22:57 Blood Pressure 126/81 08/16/21 22:57 Pulse Oximetry 98 08/16/21 22:57 Course Orders Ordered: Discontinued Medications Ciprofloxacin (Ciprofloxacin 250 Mg Tablet) 750 mg PO NOW ONE Stop: 08/17/21 00:19 Ketorolac Tromethamine (Ketorolac 30 Mg/Ml Vial) 30 mg IM NOW ONE Stop: 08/17/21 00:19 Ondansetron HCl (Ondansetron 4 Mg Odt Prepack) 1 bottle MISC SEEINSTR ONE Stop: 08/17/21 00:19 Oxycodone/Acetaminophen (Oxycodone/Acetaminophen 5/325 Tablet) 1 tab PO NOW ONE Stop: 08/17/21 00:19 Vital Signs Vital signs: Vital Signs - 8 hr 08/16/21 22:57 Temperature 98.2 F Pulse Rate 87 Respiratory Rate 17 Blood Pressure 126/81 Pulse Oximetry 98 Medical Decision Making MDM Narrative Medical decision making narrative: 41-year-old woman with now bilateral otitis externa left greater than right. Left has failed outpatient management with drops so will expand coverage to include oral ciprofloxacin as well. This does not appear to be a dental infection, posterior pharyngeal infection or acute mastoiditis. There is no for room down the canal that the ear can drain in I do not think an ear wick is required at this time. We discussed pain control continuing the ear drops while the oral option is added. She will follow-up with her primary care physician unless things are worsening. She is safe for home discharge Discharge Plan Departure Patient Disposition: Home Clinical Impression: Otitis externa Qualifiers: Otitis externa type: diffuse Chronicity: acute Laterality: bilateral Qualified Code(s): H60.313 - Diffuse otitis externa, bilateral Instructions: DI for Otitis Externa Activity Restrictions/Additional Instructions: Thank you for coming in today At this point, you are on all of the right treatment for your external ear infection and it is not effective. I want you to continue using the ear drops and start adding the ear drops on the right side as well. To this however, I am going to add oral antibiotics as well that we were treating topically as well as internally. Given the pain that you have behind her ear and into the soft tissue I think that this is very appropriate. Using 400 mg of ibuprofen (2 [id number] pills) and 1 Tylenol every 6 hours can be very helpful in controlling pain. For severe pain, you can use 400 mg of ibuprofen and 1 Percocet. I expect that the pain will become much more tolerable as the infection is better controlled. If you continue to have any nausea you can use the Zofran/ondansetron that we gave you in the emergency department If you find that things are getting worse, please return Prescriptions: New ciprofloxacin HCl 750 mg tablet 750 mg PO BID Qty: 10 RF: 0 oxycodone-acetaminophen 5-300 mg tablet 1 tab PO Q6HR Qty: 8 RF: 0 No Action ciprofloxacin-dexamethasone [Ciprodex] 0.3-0.1 % drops,suspension 4 drp otic (ear) BID 7 Days Qty: 7.5 RF: 0 propranolol 40 mg tablet 40 mg PO BID Qty: 180 RF: 3 gabapentin 300 mg capsule 300 mg PO BEDTIME Qty: 30 RF: 0 ibuprofen 600 mg tablet 600 mg PO Q6H PRN (Reason: Pain) RF: 0 Referrals: Lukasz Garrett MD [Primary Care Provider] -
[2021-08-17] MEDS: ONDANSETRON 4 MG ODT PREPACK 1 BOTTLE MISC (00:28)
[2021-08-17] MEDS: CIPROFLOXACIN 250 MG TABLET 750 MG PO (00:28)
[2021-08-17] MEDS: KETOROLAC 30 MG/ML VIAL IM (00:29)
[2021-08-17] MEDS: OXYCODONE/ACETAMINOPHEN 5/325 TABLET 1 TAB PO (00:29)
== END 2021-08-17 00:40 | disposition home or self-care (01) ==
PROVIDERS: Emergency Provider Emergency Medicine; PCP Student in an Organized Health Care Education/Training Program
DX: H60.313 Diffuse otitis externa, bilateral (principal)
CPT/HCPCS: 96372; 99283; J1885

== ENCOUNTER → 2021-11-08 16:46 | Outpatient (CLI) | payer OTHER, MEDICAID, SELFPAY ==
[2019-10-27 18:31] VITALS: BMI 35.2
--- NOTE | 2021-11-08 16:47 | DI.MG.S_ITS ---
BILATERAL DIGITAL SCREENING MAMMOGRAM 3D/2D WITH CAD: 11/08/2021 CLINICAL: Routine screening. Baseline exam. Family history of breast cancer. No prior exams were available for comparison. There are scattered fibroglandular elements in both breasts. Current study was also evaluated with a Computer Aided Detection (CAD) system. No significant masses, calcifications, or other findings are seen in either breast. IMPRESSION: NEGATIVE There is no mammographic evidence of malignancy. A 1 year screening mammogram is recommended. This exam was interpreted at Station ID: [id number]. NOTE: For mammograms, a report in lay terms will be sent to the patient. Approximately 15% of breast malignancies will not be visualized mammographically. In the management of a palpable breast mass, a negative mammogram must not discourage biopsy of a clinically suspicious lesion. Electronically Signed By: Gianfranco anderson/julissa:11/09/2021 09:10:35 letter sent: Normal Exam ACR BI-RADS Category 1: Negative [id number]
== END ==
PROVIDERS: PCP Student in an Organized Health Care Education/Training Program; Referring Provider Student in an Organized Health Care Education/Training Program; Visit Provider Student in an Organized Health Care Education/Training Program
DX: Z12.31 Encounter for screening mammogram for malignant neoplasm of breast (principal); Z80.3 Family history of malignant neoplasm of breast
CPT/HCPCS: 77063; 77067

== ENCOUNTER → 2023-08-13 09:07 | Outpatient (CLI) | payer OTHER, MEDICAID, SELFPAY ==
[2019-10-27 18:31] VITALS: BMI 35.2
[2023-08-13 10:05] LABS: Add Manual Diff / Slide Review NO; Basophils Absolute Auto 100 /uL (0-100); Eosinophils Absolute Auto 200 /uL (0-450); Eosinophils Percent Auto 2.3 % (2-4); Hematocrit 39.6 % (36-46); Hemoglobin 14.1 g/dL (12.0-16.0); Lymphocytes Absolute Auto 1800 /uL (1100-4500); Lymphocytes Percent Auto 18.8 % (25-40); Mean Corpuscular HGB Conc 35.6 % (30-36); Mean Corpuscular Volume 89.8 fL (80-100); Monocytes Absolute Auto 800 /uL (0-900); Monocytes Percent Auto 8.4 % (3-14); Neutrophils Absolute Auto 6600 /uL (1500-7000); Neutrophils Percent Auto 69.5 % (50-75); Platelet Count 299 X10^3/uL (150-400); Red Blood Cell Count 4.41 X10^6/uL (4.0-5.2); Red Cell Distribution Width 13.2 % (11.6-14.8); White Blood Cell Count 9.5 X10^3/uL (4.5-11.0)
[2023-08-13 10:21] LABS: Alanine Aminotransferase 50 IU/L (<35); Albumin 4.3 g/dL (3.5-5.0); Albumin Globulin Ratio 1.3 (1.0-2.8); Alkaline Phosphatase 78 U/L (38-126); Aspartate Aminotransferase 37 IU/L (14-36); BUN Creatinine Ratio 27.8 (6-22); Bilirubin Total 0.3 mg/dL (0.2-1.3); Blood Urea Nitrogen 20 mg/dL (7-17); Calcium 10.6 mg/dL (8.4-10.2); Carbon Dioxide 24 mmol/L (22-32); Chloride 103 mmol/L (98-107); Estimated Glomerular Filt Rate > 60 mL/min (>60); Globulin 3.3 g/dL (1.7-4.1); Glucose 116 mg/dL (70-100); HEMOLYSIS < 15 (0-50); Potassium 3.7 mmol/L (3.4-5.1); Sodium 138 mmol/L (137-145); Total Protein 7.6 g/dL (6.3-8.2)
[2023-08-13 10:38] LABS: Vitamin D 25 Hydroxy (D3) 33.2 ng/mL (30.0-100.0)
[2023-08-13 10:55] LABS: TSH w/ Reflex to FT4 4.42 uIU/mL (0.47-4.68)
[2023-08-15 06:53] LABS: Parathyroid Hormone Int 16 pg/mL (15-65)
== END ==
PROVIDERS: PCP Student in an Organized Health Care Education/Training Program; Referring Provider Student in an Organized Health Care Education/Training Program; Visit Provider Student in an Organized Health Care Education/Training Program
DX: I10 Essential (primary) hypertension (principal); R23.2 Flushing; E66.9 Obesity, unspecified
CPT/HCPCS: 36415; 80053; 82306; 83001; 83970; 84443; 85025

== ENCOUNTER 2023-09-01 17:25 | Emergency (ER) | payer OTHER, MEDICAID, SELFPAY ==
[2023-08-27 16:08] VITALS: BMI 35.2
[2023-09-01 17:31] VITALS: BP 151/89; PULSE 86; RESP 20; TEMP 36.6; O2SAT 98; BMI 37.3
--- NOTE | 2023-09-01 17:38 | DI.RAD.S_ITS ---
PROCEDURE: XR CHEST 1V INDICATIONS: chest pain TECHNIQUE: One view of the chest was acquired. COMPARISON: [facility], , XR CHEST 1V, 12/06/2019, 1:07. FINDINGS: Surgical changes and devices: None. Lungs and pleura: On this semiupright portable chest examination, no large pneumothorax or large pleural effusions are seen. No focal infiltrates are seen. Low lung volumes are noted. This causes a crowded appearance to the lung markings and limits evaluation. Mediastinum: Mediastinal contours appear normal. Heart size is normal. Bones and chest wall: No suspicious bony lesions. Overlying soft tissues appear unremarkable. IMPRESSION: Limited portable chest examination, without a significant cardiopulmonary abnormality identified. Dictated by: Watson Wu M.D. on 09/01/2023 at 17:29 Approved by: Watson Wu M.D. on 09/01/2023 at 17:29
[2023-09-01 18:01] VITALS: BP 133/91; PULSE 77; RESP 13; O2SAT 97
--- NOTE | 2023-09-01 18:10 | PC.NURSE ---
pt alert oriented, tearful in stretcher, placed on monitoring equipment, HR WNL, NSR on monitor, RR even, unlabored, skin WNL. Pt's partner answering most questions directed at patient. reports chest discomfort started this morning, worried it's a heart attack, ekg done, evaluated, no acute medical distress noted. pt and partner report recent change to lamotrigine on sunday. call light in reach.
[2023-09-01 18:13] LABS: Add Manual Diff / Slide Review NO; Basophils Absolute Auto 100 /uL (0-100); Basophils Percent Auto 1.1 % (0-2); Eosinophils Absolute Auto 100 /uL (0-450); Eosinophils Percent Auto 1.5 % (2-4); Hematocrit 40.3 % (36-46); Hemoglobin 14.3 g/dL (12.0-16.0); Lymphocytes Absolute Auto 1300 /uL (1100-4500); Lymphocytes Percent Auto 15.2 % (25-40); Mean Corpuscular HGB Conc 35.5 % (30-36); Mean Corpuscular Hemoglobin 31.7 PG (26-34); Mean Corpuscular Volume 89.1 fL (80-100); Monocytes Absolute Auto 800 /uL (0-900); Monocytes Percent Auto 9.6 % (3-14); Neutrophils Absolute Auto 6200 /uL (1500-7000); Neutrophils Percent Auto 72.6 % (50-75); Platelet Count 291 X10^3/uL (150-400); Red Blood Cell Count 4.53 X10^6/uL (4.0-5.2); Red Cell Distribution Width 12.5 % (11.6-14.8); White Blood Cell Count 8.6 X10^3/uL (4.5-11.0)
[2023-09-01 18:18] LABS: INR 1.1 (0.9-1.3); Prothrombin Time 13.1 SECONDS (10.1-12.7)
[2023-09-01 18:20] LABS: PTT Partial Thromboplastin Tim 35 SECONDS (26-36)
[2023-09-01 18:23] LABS: Alanine Aminotransferase 42 IU/L (<35); Albumin 4.8 g/dL (3.5-5.0); Albumin Globulin Ratio 1.3 (1.0-2.8); Alkaline Phosphatase 76 U/L (38-126); Aspartate Aminotransferase 33 IU/L (14-36); BUN Creatinine Ratio 9.2 (6-22); Bilirubin Total 0.5 mg/dL (0.2-1.3); Blood Urea Nitrogen 6 mg/dL (7-17); Calcium 9.9 mg/dL (8.4-10.2); Carbon Dioxide 19 mmol/L (22-32); Chloride 104 mmol/L (98-107); Creatine Kinase 105 U/L (30-135); Estimated Glomerular Filt Rate > 60 mL/min (>60); Globulin 3.8 g/dL (1.7-4.1); Glucose 106 mg/dL (70-100); HEMOLYSIS < 15 (0-50); Lipase 119 U/L (23-300); Magnesium 1.7 mg/dL (1.6-2.3); Potassium 3.9 mmol/L (3.4-5.1); Sodium 137 mmol/L (137-145); Total Protein 8.6 g/dL (6.3-8.2)
[2023-09-01 18:30] VITALS: BP 132/86; PULSE 73; RESP 14; O2SAT 98
[2023-09-01 18:34] LABS: Troponin I < 0.012 ng/mL (0.01-0.034)
--- NOTE | 2023-09-01 18:45 | ED.ARRPALP ---
HPI - Arrhythmia/Palpitations General Chief Complaint: Arrhythmia/Palpitations Stated Complaint: thinks heart attack Time Seen by Provider: 09/01/23 18:01 Source: patient Mode of arrival: Wheelchair History of Present Illness HPI narrative: Patient is a 43-year-old female. She was here with her for evaluation of chest pain, palpitations, feeling sweaty, shortness of breath. At the time of my evaluation she states she actually feels much better than what she did earlier. She was at her normal state of health. They had some friends come over. States she would a sudden onset of all of her symptoms. She did have some nausea but no vomiting. She did have an increase in her lamotrigine on Sunday of this week. It went from 25 mg a day to 50 mg a day. Related Data Home Medications Medication Instructions Recorded Confirmed ibuprofen 600 mg tablet 600 mg PO Q6H PRN Pain 08/06/19 08/27/23 omeprazole 20 mg capsule,delayed 20 mg PO DAILY 08/07/22 08/27/23 release Previous Rx's Medication Instructions Recorded bupropion HCl 150 mg tablet,12 hr 150 mg PO DAILY #30 ea 08/13/23 sustained-release (Wellbutrin SR) lamotrigine 25 mg tablet 25 mg PO DAILY 28 days #70 tabs 08/13/23 lisinopril 5 mg tablet 5 mg PO DAILY #30 tabs 08/13/23 naltrexone 50 mg tablet 50 mg PO DAILY #30 tabs 08/13/23 Allergies Allergy/AdvReac Type Severity Reaction Status Date / Time naproxen [From Aleve] Allergy Severe face Verified 09/01/23 17:37 swelling gabapentin AdvReac Intermediate skin Verified 09/01/23 17:37 crawling codeine AdvReac Mild Agitated Verified 09/01/23 17:37 lisinopril AdvReac Mild cough Verified 08/27/23 15:44 Review of Systems Constitutional Constitutional: Reports system reviewed and no additional complaints, except as documented Cardiovascular Cardiovascular: Reports system reviewed and no additional complaints, except as documented Respiratory Respiratory: Reports system reviewed and no additional complaints, except as documented Gastrointestinal Gastrointestinal: Reports system reviewed and no additional complaints, except as documented Musculoskeletal Musculoskeletal: Reports system reviewed and no additional complaints, except as documented Integumentary/Breasts Skin/Breast: Reports system reviewed and no additional complaints, except as documented Neurologic Neurologic: Reports system reviewed and no additional complaints, except as documented Hematologic/Lymphatic On Anticoagulants: No Patient History Medical History Family history of endometriosis in first degree relative Cervical stenosis of spinal canal Herniated nucleus pulposus with myelopathy, cervical Lupus (systemic lupus erythematosus) Post traumatic stress disorder (PTSD) Anxiety Back problem Fibromyalgia (~2009) Kidney stones (~2010) Tinea versicolor Surgical History Anesthesia History of lithotripsy (~2009) Previous section (~11/15/00) S/P laparoscopic supracervical hysterectomy Family History Mother Lupus Fibromyalgia Social History household members: spouse and children Smoking Status: Current some day smoker alcohol intake: current Smoking Status: Current some day smoker tobacco type: vaping alcohol intake frequency: a few times a week Alcohol type: wine Substance Use Type: marijuana Exam Initial Vital Signs Initial Vital Signs: Vital Signs Temperature 97.8 F 09/01/23 17:31 Pulse Rate 86 09/01/23 17:31 Respiratory Rate 20 09/01/23 17:31 Blood Pressure 151/89 H 09/01/23 17:31 Pulse Oximetry 98 09/01/23 17:31 Oxygen Delivery Method Room Air 09/01/23 17:31 Const General: cooperative and healthy appearing HENMO Head: normal to inspection Resp Effort & Inspection: normal respiratory effort Auscultation: clear to auscultation bilaterally Cardio Rate: regular rate Rhythm: regular rhythm GI Inspection: normal to inspection and non-distended Skin General: no rashes or lesions noted Neuro General: patient alert, patient awake and moves all extremities Extrem General: normal to inspection and capillary refill normal Course Orders Ordered: ED Orders 09/01/23 17:38 XR chest 1V Stat EKG-12 Lead Stat 09/01/23 18:00 Complete Blood Count AUTO DIFF Stat Comprehensive Metabolic Panel Stat Lipase Stat Magnesium Stat PTT Partial Thromboplastin Jean Stat Prothrombin Time INR Stat Troponin & CK Cardiac Panel Stat Discontinued Medications Aspirin (Aspirin 81 Mg Chew Tab) 324 mg PO NOW ONE Stop: 09/01/23 17:39 Last Admin: 09/01/23 18:03 Dose: Not Given Documented By: KF Vital Signs Vital signs: Vital Signs - 8 hr 09/01/23 17:31 09/01/23 18:01 09/01/23 18:01 Temperature 97.8 F Pulse Rate 86 77 Respiratory Rate 20 13 Blood Pressure 151/89 H 133/91 H Pulse Oximetry 98 97 Oxygen Delivery Method Room Air 09/01/23 18:30 09/01/23 18:30 Temperature Pulse Rate 73 Respiratory Rate 14 Blood Pressure 132/86 Pulse Oximetry 98 Oxygen Delivery Method MDM - Arrhythmia/Palpitations Lab Data Attestation: I reviewed the patient's lab results. 09/01/23 18:00 09/01/23 18:00 Labs: Lab Results 09/01/23 Range/Units 18:00 WBC 8.6 (4.5-11.0) X10^3/uL RBC 4.53 (4.0-5.2) X10^6/uL Hgb 14.3 (12.0-16.0) g/dL Hct 40.3 (36-46) % MCV 89.1 (80-100) fL MCH 31.7 (26-34) PG MCHC 35.5 (30-36) % RDW 12.5 (11.6-14.8) % Plt Count 291 (150-400) X10^3/uL Neut % (Auto) 72.6 (50-75) % Lymph % (Auto) 15.2 L (25-40) % [place] % (Auto) 9.6 (3-14) % Eos % (Auto) 1.5 L (2-4) % Baso % (Auto) 1.1 (0-2) % Neut # (Auto) 6200 (2532-1433) /uL Lymph # (Auto) 1300 (2491-6531) /uL [place] # (Auto) 800 (0-900) /uL Eos # (Auto) 100 (0-450) /uL Baso # (Auto) 100 (0-100) /uL PT 13.1 H (10.1-12.7) SECONDS INR 1.1 (0.9-1.3) APTT 35 (26-36) SECONDS Sodium 137 (137-145) mmol/L Potassium 3.9 (3.4-5.1) mmol/L Chloride 104 (98-107) mmol/L Carbon Dioxide 19 L (22-32) mmol/L BUN 6 L (7-17) mg/dL Creatinine 0.65 (0.52-1.04) mg/dL Estimated GFR > 60 (>60) mL/min BUN/Creatinine Ratio 9.2 (6-22) Glucose 106 H (70-100) mg/dL Calcium 9.9 (8.4-10.2) mg/dL Magnesium 1.7 (1.6-2.3) mg/dL Total Bilirubin 0.5 (0.2-1.3) mg/dL AST 33 (14-36) IU/L ALT 42 H (<35) IU/L Alkaline Phosphatase 76 (38-126) U/L Total Creatine Kinase 105 (30-135) U/L Troponin I < 0.012 (0.01-0.034) ng/mL Total Protein 8.6 H (6.3-8.2) g/dL Albumin 4.8 (3.5-5.0) g/dL Globulin 3.8 (1.7-4.1) g/dL Albumin/Globulin Ratio 1.3 (1.0-2.8) Lipase 119 (23-300) U/L Imaging Data Chest x-ray: Radiologist's Impresson: PROCEDURE: XR CHEST 1V INDICATIONS: chest pain TECHNIQUE: One view of the chest was acquired. COMPARISON: [facility], , XR CHEST 1V, 12/06/2019, 1:07. FINDINGS: Surgical changes and devices: None. Lungs and pleura: On this semiupright portable chest examination, no large pneumothorax or large pleural effusions are seen. No focal infiltrates are seen. Low lung volumes are noted. This causes a crowded appearance to the lung markings and limits evaluation. Mediastinum: Mediastinal contours appear normal. Heart size is normal. Bones and chest wall: No suspicious bony lesions. Overlying soft tissues appear unremarkable. IMPRESSION: Limited portable chest examination, without a significant cardiopulmonary abnormality identified. ECG Data Attestation: I personally reviewed and interpreted this ECG as follows: Interpretation: Sinus rhythm Ventricular rate 80 LVH Normal QRS Normal QTC No ST T wave changes MDM Narrative Medical decision making narrative: Patient is not tachycardic, not hypoxic, not hypotensive, unremarkable EKG, negative troponin, normal chest x-ray. Low suspicion for ACS, TIA. She is in sinus rhythm. We did discuss the possibility of a transient arrhythmia given the palpitations she was having at the time. Advised that she could talk with her primary doctor about the indications for Holter monitor. Low suspicion for pulmonary embolism. Chest x-ray is negative. There was no indication of an infectious process. Discussed all this with the patient and her . She has a follow-up with her primary doctor on Sunday. She was given return precautions. She expressed understanding and agreement. Discharge Plan Departure Patient Disposition: Home Clinical Impression: Palpitations, Atypical chest pain Instructions: DI for Atypical Chest Pain Activity Restrictions/Additional Instructions: Recommend that you continue to take all of your medications as directed. Keep your appointment that she was scheduled with your primary doctor on Sunday. Return to the emergency department for new or worsening symptoms. Prescriptions: No Action bupropion HCl [Wellbutrin SR] 150 mg tablet sustained-release 12 hr 150 mg PO DAILY Qty: 30 3RF naltrexone 50 mg tablet 50 mg PO DAILY Qty: 30 3RF lamotrigine 25 mg tablet 25 mg PO DAILY 28 Days Qty: 70 0RF Rx Instructions: Take 1 pill by mouth daily for 14 days then take 2 pills by mouth daily for days 14-30. lisinopril 5 mg tablet 5 mg PO DAILY Qty: 30 0RF omeprazole 20 mg capsule,delayed release(DR/EC) 20 mg PO DAILY ibuprofen 600 mg tablet 600 mg PO Q6H PRN (Reason: Pain) Referrals: Raegan Samano MD [Primary Care Provider] - Stand Alone Forms: Patient Portal/API
== END 2023-09-01 18:54 | disposition home or self-care (01) ==
PROVIDERS: Emergency Medicine; Emergency Provider Emergency Medicine; PCP Student in an Organized Health Care Education/Training Program
DX: R00.2 Palpitations (principal); R07.89 Other chest pain
CPT/HCPCS: 36415; 71045; 80053; 82550; 83690; 83735; 84484; 85025; 85610; 85730; 93005; 99283; 99284

== ENCOUNTER → 2024-03-20 07:32 | Outpatient (CLI) | payer OTHER, MEDICAID, SELFPAY ==
[2023-08-27 16:08] VITALS: BMI 35.2
[2024-03-20 08:29] LABS: Influenza A - CEPHEID Flu A NEGATIVE (NEGATIVE); Influenza B - CEPHEID Flu B NEGATIVE (NEGATIVE); Respiratory Syncytial Virus Negative (Negative)
[2024-03-20 08:31] LABS: COVID-19 CEPHEID 4-PLEX PCR Negative (Negative)
== END ==
PROVIDERS: PCP Student in an Organized Health Care Education/Training Program; Visit Provider Physician Assistant Surgical
DX: R05.1 Acute cough (principal)
CPT/HCPCS: 87635; 87400 ×2; 87420; 0241U

== ENCOUNTER → 2024-04-07 10:10 | Outpatient (CLI) | payer OTHER, MEDICAID, SELFPAY ==
[2023-08-27 16:08] VITALS: BMI 35.2
[2024-04-07 11:09] LABS: Add Manual Diff / Slide Review NO; Basophils Absolute Auto 100 /uL (0-100); Basophils Percent Auto 0.6 % (0-2); Eosinophils Absolute Auto 300 /uL (0-450); Eosinophils Percent Auto 3.3 % (2-4); Hemoglobin 12.5 g/dL (12.0-16.0); Lymphocytes Absolute Auto 1500 /uL (1100-4500); Lymphocytes Percent Auto 17.8 % (25-40); Mean Corpuscular HGB Conc 34.8 % (30-36); Mean Corpuscular Hemoglobin 31.1 PG (26-34); Mean Corpuscular Volume 89.5 fL (80-100); Monocytes Absolute Auto 900 /uL (0-900); Neutrophils Absolute Auto 5600 /uL (1500-7000); Neutrophils Percent Auto 67.3 % (50-75); Platelet Count 297 X10^3/uL (150-400); Red Blood Cell Count 4.02 X10^6/uL (4.0-5.2); Red Cell Distribution Width 13.5 % (11.6-14.8); White Blood Cell Count 8.3 X10^3/uL (4.5-11.0)
[2024-04-07 11:35] LABS: Alanine Aminotransferase 32 IU/L (<35); Albumin 3.9 g/dL (3.5-5.0); Albumin Globulin Ratio 1.6 (1.0-2.8); Alkaline Phosphatase 64 U/L (38-126); Aspartate Aminotransferase 31 IU/L (14-36); BUN Creatinine Ratio 10.6 (6-22); Bilirubin Total 0.7 mg/dL (0.2-1.3); Blood Urea Nitrogen 7 mg/dL (7-17); Calcium 8.5 mg/dL (8.4-10.2); Carbon Dioxide 22 mmol/L (22-32); Chloride 112 mmol/L (98-107); Cholesterol 206 mg/dL (140-199); Estimated Glomerular Filt Rate > 60 mL/min (>60); Globulin 2.4 g/dL (1.7-4.1); Glucose 108 mg/dL (70-100); HDL Cholesterol 35 mg/dL (40-60); HEMOLYSIS < 15 (0-50); LDL Cholesterol Calculated 146 mg/dL (<100); Potassium 4.3 mmol/L (3.4-5.1); Sodium 139 mmol/L (137-145); Total Protein 6.3 g/dL (6.3-8.2); Triglycerides 125 mg/dL (35-150)
== END ==
PROVIDERS: PCP Student in an Organized Health Care Education/Training Program; Referring Provider Student in an Organized Health Care Education/Training Program; Visit Provider Student in an Organized Health Care Education/Training Program
DX: Z79.899 Other long term (current) drug therapy (principal)
CPT/HCPCS: 36415; 80053; 80061; 85025

== ENCOUNTER → 2025-04-13 07:53 | Outpatient (CLI) | payer OTHER, SELFPAY ==
[2023-08-27 16:08] VITALS: BMI 35.2
[2025-04-13 08:37] LABS: Hematocrit 40.4 % (36-46); Mean Corpuscular HGB Conc 34.8 % (30-36); Mean Corpuscular Hemoglobin 31.9 PG (26-34); Mean Corpuscular Volume 91.8 fL (80-100); Platelet Count 308 X10^3/uL (150-400); Red Cell Distribution Width 12.6 % (11.6-14.8); White Blood Cell Count 6.8 X10^3/uL (4.5-11.0)
[2025-04-13 09:07] LABS: Alanine Aminotransferase 16 IU/L (<35); Albumin 4.4 g/dL (3.5-5.0); Albumin Globulin Ratio 1.6 (1.0-2.8); Alkaline Phosphatase 64 U/L (38-126); Aspartate Aminotransferase 20 IU/L (14-36); BUN Creatinine Ratio 13.2 (6-22); Bilirubin Total 0.6 mg/dL (0.2-1.3); Blood Urea Nitrogen 12 mg/dL (7-17); Calcium 9.7 mg/dL (8.4-10.2); Carbon Dioxide 20 mmol/L (22-32); Chloride 109 mmol/L (98-107); Cholesterol 229 mg/dL (140-199); Estimated Glomerular Filt Rate > 60 mL/min (>60); Globulin 2.8 g/dL (1.7-4.1); Glucose 107 mg/dL (70-99); HDL Cholesterol 37 mg/dL (40-60); HEMOLYSIS 21 (0-50); LDL Cholesterol Calculated 165 mg/dL (<100); Potassium 4.6 mmol/L (3.4-5.1); Sodium 139 mmol/L (137-145); Total Protein 7.2 g/dL (6.3-8.2); Triglycerides 136 mg/dL (35-150)
[2025-04-13 09:23] LABS: Neutrophils Absolute Manual 4216 /uL (3000-5900); Total Cells Counted 100
[2025-04-13 09:26] LABS: Platelet Estimate Adequate on smear; RBC Morphology Normal Morphology
== END ==
PROVIDERS: PCP Student in an Organized Health Care Education/Training Program; Referring Provider Student in an Organized Health Care Education/Training Program; Visit Provider Student in an Organized Health Care Education/Training Program
DX: I10 Essential (primary) hypertension (principal)
CPT/HCPCS: 36415; 80053; 80061; 85025

== ENCOUNTER 2025-06-02 09:49 | Day surgery (SDC) | payer OTHER, SELFPAY ==
[2023-08-27 16:08] VITALS: BMI 35.2
[2025-06-02 10:15] VITALS: BP 105/80; PULSE 80; RESP 16; TEMP 36.6; O2SAT 100
[2025-06-02] MEDS: LACTATED RINGERS 1,000 ML 42 ML IV (10:20)
--- NOTE | 2025-06-02 10:36 | PM.HP.IH.1 ---
History of Present Illness History of Present Illness Date Patient Seen: 06/02/25 Time Patient Seen: 10:36 Chief complaint: Colonoscopy Narrative: 45yo F presents for first screening colonosocpy. +FH, her mother had colon cancer in her 20s. Patient denies colon symptoms. [facility] Medical History Family history of endometriosis in first degree relative Cervical stenosis of spinal canal Herniated nucleus pulposus with myelopathy, cervical Lupus (systemic lupus erythematosus) Post traumatic stress disorder (PTSD) Anxiety Back problem Fibromyalgia (~2009) Kidney stones (~2010) Tinea versicolor Surgical History Anesthesia History of lithotripsy (~2009) Previous section (~11/15/00) S/P laparoscopic supracervical hysterectomy Family History Mother Lupus Fibromyalgia Social History household members: spouse and children Smoking Status: Former smoker alcohol intake: current Meds Home Medications and Allergies Home Medications ?Medication ?Instructions ?Recorded ?Confirmed ?Type ibuprofen 600 mg tablet 600 mg PO Q6H PRN Pain 08/06/19 06/02/25 History omeprazole 20 mg capsule,delayed 20 mg PO DAILY 08/07/22 06/02/25 History release ipratropium bromide 21 mcg (0.03 2 spray intranasal BID PRN allergy 03/20/24 06/02/25 Rx %) nasal spray symptoms #30 mL lisinopril 5 mg tablet 5 mg PO DAILY #120 tabs 09/15/24 06/02/25 Rx aripiprazole 2 mg tablet 2 mg PO QPM #90 tabs 01/06/25 06/02/25 Rx aripiprazole 5 mg tablet 5 mg PO DAILY #90 tabs 01/06/25 06/02/25 Rx topiramate 25 mg tablet 25 mg PO BID #60 tabs 02/17/25 06/02/25 Rx bupropion HCl 150 mg tablet,12 hr 150 mg PO DAILY #120 tabs 03/09/25 06/02/25 Rx sustained-release phentermine 37.5 mg tablet 37.5 mg PO DAILY #30 tabs 04/24/25 06/02/25 Rx peg 3350-electrolytes 236 240 ml PO Q10M #4,000 mL 05/25/25 06/02/25 Rx gram-22.74 gram-6.74 gram-5.86 gram solution (Golytely) cetirizine 10 mg tablet (24Hour 10 mg PO DAILY PRN allergy symptoms 06/02/25 06/02/25 History Allergy) cholecalciferol (vitamin D3) 125 125 mcg PO DAILY 06/02/25 06/02/25 History mcg (5,000 unit) tablet (Vitamin D3) Allergies Allergy/AdvReac Type Severity Reaction Status Date / Time naproxen (From Aleve) Allergy Severe face Verified 06/02/25 10:00 swelling gabapentin AdvReac Intermediate skin Verified 06/02/25 10:00 crawling codeine AdvReac Mild Agitated Verified 06/02/25 10:00 Exam Vital Signs (past 8 hours): - 06/02/25 10:15 Temperature 97.9 F Pulse Rate 80 Respiratory Rate 16 Blood Pressure 105/80 Pulse Oximetry 100 Oxygen Delivery Method Room Air Oxygen Delivery Method Room Air Const General: healthy appearing and comfortable Orientation: alert and oriented x3 Resp Effort & Inspection: normal respiratory effort and able to speak in complete sentences Cardio Rate: regular rate Rhythm: regular rhythm GI Palpation: soft (nontender) Extrem Other: without pitting edema Assessment & Plan Assessment and plan (1) Family history of colon cancer: Status: Acute Plan Screening colonoscopy, possible colonoscopy. The risks, benefits and options regarding the procedure were explained to the patient in detail. Risk discussion included but not limited to: bleeding, perforation, unable to reach cecum, missed lesion. The patient was encouraged to ask questions and they were answered to their satisfaction. The patient understands and is agreeable to proceed. Time-Based Coding :: [TOTAL MINUTES] spent with patient and on the chart (including review of chart, obtaining history, exam, reviewing outside data, placing orders, documenting exam and treatment plan, and counseling patient) on [DATE]. 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
[2025-06-02] MEDS: SIMETHICONE DROPS 40 MG/0.6 ML PO (10:51)
[2025-06-02 11:23] VITALS: BP 97/57; PULSE 83; RESP 16; TEMP 36.3; O2SAT 96
--- NOTE | 2025-06-02 11:24 | PM.OP.COLON ---
Operative Date/Time/Diagnoses Date of procedure: 06/02/25 Time of procedure: 11:24 Pre-op diagnosis: Screening colonoscopy, +FH colon cancer mother Post-op diagnosis: same Procedure & Clinicians Study performed: Screening colonoscopy Same procedure(s) as scheduled: Yes Indications: 45yo F, first screening colonoscopy, mother with colon cancer at age 20 Surgeon: Paul Tenorio Anesthesia Type: MAC +/- Procedure Notes SCOAP/Timeout: Performed Procedure in detail: Colonoscopy Patient placed in left lateral recumbent position. Time out was performed. Procedural sedation was administered by anesthesia. Examination began with a thorough inspection of the perianal area. There was no evidence of fissures, fistulae, external hemorrhoids or cutaneous malignancy. The colonoscope was then placed into the rectum and the lumen was insufflated with carbon dioxide. The scope was carefully advanced forward. Ultimately the cecum was intubated and confirmed by identification of the ileocecal valve, the appendiceal orifice and the confluence of the taenia. The scope was then slowly withdrawn examining the colon thoroughly in all directions. In the rectum, retroflexion of the scope was performed for inspection of the distal rectum and anal canal. ?Significant colonoscopy findings: ?1. Quality of the preparation-good [place] 2, improved with irrigation/suction ?2. No polyps, no diverticulosis, normal exam Scope withdrawal time: 7 minutes Specimen(s): none sent Complications: none Impression: Normal screening colonoscopy Recommend next screening exam in 10 years Post-procedure Recommendations: Colonoscopy in 10 years Plan for aftercare: PACU then home Follow up: as needed Disposition: PACU
[2025-06-02 11:25] VITALS: BP 97/58; PULSE 85; RESP 26; O2SAT 97
[2025-06-02 11:30] VITALS: BP 104/62; PULSE 83; RESP 18; O2SAT 98
[2025-06-02 11:35] VITALS: BP 104/64; PULSE 77; RESP 25; O2SAT 99
== END 2025-06-02 11:45 | disposition home or self-care (01) ==
PROVIDERS: PCP Student in an Organized Health Care Education/Training Program; Referring Provider Student in an Organized Health Care Education/Training Program; Visit Provider Surgery
PROC: 0DJD8ZZ Inspection of Lower Intestinal Tract, Via Natural or Artificial Opening Endoscopic (ICD-10-PCS; CPT 45378; principal; 2025-06-02 11:00)
DX: Z12.11 Encounter for screening for malignant neoplasm of colon (principal); Z80.0 Family history of malignant neoplasm of digestive organs
CPT/HCPCS: 45378; J2704